=== PATIENT | male | born 1980 | race Two or more races ===

== ENCOUNTER 2020-02-17 19:08 | Inpatient (IN) | payer MEDICAID, OTHER ==
[~2020-02-17] VITALS: Ht 162.6 cm; Wt 108.0 kg
--- NOTE | 2020-02-17 19:08 | NUR ---
BIBRA 41 FOR R SIDED WEAKNESS X 1 WK; PT TO BED 9, PT AAOX4, SALVADOREAN SPEAKING, +RIGHT ARM WEAKNESS, +RIGHT LEG WEAKNESS. PER REPORT, PT HAD WEAKNESS X1WEEK, DID NOT SEEK MEDICAL CARE UNTIL TODAY, -SOB, PLACED ON MONITOR, +HIGH BP, DR. CHRISTINE AT BEDSIDE FOR EVAL
[2020-02-17] MEDS ORDERED: LABETALOL HCL IV 100MG VIAL ONE (19:25)
--- NOTE | 2020-02-17 19:27 | NUR ---
PAGED RADIOLOGY TO DO CT STAT
--- NOTE | 2020-02-17 19:28 | NUR ---
drawn blood from [facility], sent to lab
[2020-02-17] MEDS ORDERED: IV NS 0.9% 1,000 ML BAG IV ONE (19:30)
[2020-02-17] MEDS ORDERED: LABETALOL 20 MG/4 ML VIAL IV ONE (19:30)
[2020-02-17 19:39] LABS: HEMOGLOBIN 15.6 g/dL (13.5-17.5); LYMPHOCYTES # (AUTO) 1.5 /CMM (0.8-4.8); MEAN CORPUSCULAR HGB CONC 33 g/dl (31.0-36.0); MONOCYTES # (AUTO) 0.6 /CMM (0.1-1.30); NEUTROPHILS # (AUTO) 5.4 /CMM (1.8-8.9); RED BLOOD CELL COUNT(AUTO) 5.83 MIL/uL (4.5-6.0)
[2020-02-17 19:42] LABS: BASOPHILS % (AUTO) 0.5 % (0.0-2.0); EOSINOPHILS % (AUTO) 1.9 % (0.0-6.0); HEMATOCRIT 48 % (39-51); LYMPHOCYTES % (AUTO) 19.6 % (20.0-44.0); MEAN CORPUSCULAR VOLUME 82 fL (80-96); MONOCYTES % (AUTO) 7.4 % (2.0-12.0); NEUTROPHILS % (AUTO) 70.6 % (43.0-81.0); WHITE BLOOD COUNT (AUTO) 7.7 K/uL (4.3-11.0)
[2020-02-17 19:46] LABS: CALCIUM, SERUM 9.3 mg/dL (8.5-10.1); CREATININE 1.5 mg/dL (0.6-1.3); PLATELET COUNT (AUTO) 20 /CMM (150-450); POTASSIUM 3.7 mmol/L (3.5-5.1)
[2020-02-17 19:52] LABS: ALBUMIN 4.1 g/dL (3.4-5.0); BILIRUBIN,DIRECT 0.1 mg/dL (0.0-0.2); BILIRUBIN,TOTAL 0.5 mg/dL (0.2-1.0); TOTAL PROTEIN, SERUM 8.8 g/dL (6.4-8.2)
--- NOTE | 2020-02-17 20:16 | NUR ---
NEURO PAGED, DR. ACUNA VERTICAL PUNCH OPERATOR
--- NOTE | 2020-02-17 20:36 | NUR ---
DR. CHRISTINE ON THE PHONE WITH NEURO, DR. ACUNA
[2020-02-17 20:59] LABS: LYMPHOCYTES % (MANUAL) 19 % (16-48); MONOCYTES % (MANUAL) 6 % (0-11.0); NEUTROPHILS % (MANUAL) 75 (42-76)
--- NOTE | 2020-02-17 21:06 | NUR ---
REPORT GIVEN TO CHARGE NURSE QUINCY ANGUIANO --PT WILL BE TRANSPORTED TO 3RD FLOOR
[2020-02-17 21:50] VITALS: BP 164/92
[2020-02-17] MEDS ORDERED: ONDANSETRON HCL/PF 4 MG/2 ML VIAL IVP PRN (22:00)
[2020-02-17] MEDS ORDERED: ACETAMINOPHEN 325 MG TABLET PO PRN (22:00)
[2020-02-17] MEDS ORDERED: Z GUARD REMEDY 2 OZ OINT TP PRN (22:00)
--- NOTE | 2020-02-17 22:00 | NUR ---
PT TRANSPORTED TO 3RD FLOOR
[2020-02-17] MEDS: hydrALAZINE HCL 25 MG TABLET PO SCH (23:15)
[2020-02-17] MEDS: IV NS 0.9% 1,000 ML IV PRN (23:16)
[2020-02-18] VITALS (8 sets, daily range): BP systolic 134–174; BP diastolic 76–96
[2020-02-18] MEDS: hydrALAZINE HCL 25 MG TABLET PO SCH ×3 (05:07→21:37)
--- NOTE | 2020-02-18 05:31 | NUR ---
ENDING NOTES: AROUSES EASILY AND ALERT. SPEECH CLEAR SOME LATVIAN SOME CUBAN. HE IS QUICK TO SMILE. FRIENDLY AND COOPERATIVE. NOTED LEFT SIDE MOIUTH DROOP. SWALLOW EVAL BEDSIDE DONE WITH 30 ML AND THE 60 ML EVA HE PASSED NO COUGHING. ASP PRECAUTIONS WILL BE OBSERVED. RIGHT ARM FLACCID, NO TOY PAINTER NO FINGER MOVEMENT AND UNABLE TO LIFT AND HOLD. MD VÁSQUEZ AT THE NURSE'S STATION AND I SPOKE TO HIM ABOUT THE RIGHT ANR AND LEFT LEG CONDITION AND THE DROOPING LEFT SIDE OF THE MOUTH,'HE SAID HE IS AWARE SAW HIM DOWN IN THE ER. B/P WAS IN THE 200'S IN THE ER LATEST 151/76 HR67. SLEPT THRU THE NIGHT USING T HE URINAL X2.
[2020-02-18 07:12] LABS: BASOPHILS % (AUTO) 0.6 % (0.0-2.0); EOSINOPHILS % (AUTO) 1.4 % (0.0-6.0); HEMATOCRIT 45 % (39-51); HEMOGLOBIN 14.5 g/dL (13.5-17.5); LYMPHOCYTES # (AUTO) 1.4 /CMM (0.8-4.8); MEAN CORPUSCULAR HGB CONC 33 g/dl (31.0-36.0); MEAN CORPUSCULAR VOLUME 82 fL (80-96); MONOCYTES # (AUTO) 0.5 /CMM (0.1-1.30); MONOCYTES % (AUTO) 8.2 % (2.0-12.0); NEUTROPHILS # (AUTO) 4.5 /CMM (1.8-8.9); NEUTROPHILS % (AUTO) 68.8 % (43.0-81.0); RED BLOOD CELL COUNT(AUTO) 5.42 MIL/uL (4.5-6.0); WHITE BLOOD COUNT (AUTO) 6.6 K/uL (4.3-11.0)
[2020-02-18 07:49] LABS: ALBUMIN 3.6 g/dL (3.4-5.0); BILIRUBIN,TOTAL 0.5 mg/dL (0.2-1.0); CALCIUM, SERUM 8.6 mg/dL (8.5-10.1); CREATININE 1.5 mg/dL (0.6-1.3); MAGNESIUM 2.4 mg/dL (1.8-2.4); PHOSPHORUS 5.2 mg/dL (2.5-4.9); POTASSIUM 3.5 mmol/L (3.5-5.1); TOTAL PROTEIN, SERUM 7.7 g/dL (6.4-8.2)
--- NOTE | 2020-02-18 07:50 | NUR ---
rn opening notes Patient received on room air, nos ob noted, patient denies pain at this time. L AC 20 gauge present with NS 80 ml per hour running. Awaiting for Dr. Chan's evaluation. Bed at the lowest setting, call light within reach, side rails up x2.
[2020-02-18 07:55] LABS: THYROID STIMULATING HORMONE 0.973 uIU/mL (0.358-3.74)
[2020-02-18 08:03] LABS: PLATELET COUNT (AUTO) 24 /CMM (150-450)
[2020-02-18 08:04] LABS: EOSINOPHILS % (MANUAL) 2 % (0-4); LYMPHOCYTES % (MANUAL) 21 % (16-48); MONOCYTES % (MANUAL) 4 % (0-11.0); NEUTROPHILS % (MANUAL) 73 (42-76)
[2020-02-18] MEDS: LOSARTAN POTASSIUM 50 MG TABLET PO SCH (08:32)
[2020-02-18] MEDS: AMLODIPINE BESYLATE 10 MG TABLET PO SCH (08:32)
--- NOTE | 2020-02-18 11:11 | NUR ---
rn notes Dr Rojas made aware about the policy for stroke, about needing anti coagulant. Patient is currently just waiting for Dr. Chan at this time
--- NOTE | 2020-02-18 11:47 | NUR ---
SOCIAL WORK CONSULT: SW received consult for evaluation per stroke protocol. SW met with pt at bedside, introduced self and reason for visit. Upon social work evaluation, pt appeared with positive attitude was cooperative and pleasant. Pt is Mongolian Speaking only. Pts left cheek is droopy but pt is able to speak adequately. Pt also states that his right arm and right leg are impaired. Pt states that he lives with his relative and brother Klaus [phone] at [address], [place], [address]. Pt identifies his brother as his medical decision maker. Pt identifies his brother, relative Jose R [phone] and his cousin as his main support systems and states that his brother has helped him with his 1 year sobriety from alcohol. He also states that his brother will help him recover and assist him at home and states that he will return home and to work once stable for discharge. SW educated pt on the signs and symptoms of a stroke and explained that a stroke is a sudden event that may lead to a decline in functioning. Pt understood and states that in the 17 years he has lived in the [facility] he has never sought medical attention or visited a health care provider for routine check-ups. Pt states that he is unsure if he has other comorbidities and states that he has not been informed by MD about this current condition. SW completed the PhQ9 and pt scored a 4. SW provided pt with educational material on post-stroke depression. Pt denied symptoms of depression and also strongly denied suicidal ideation. Addendum: 02/18/20 at 1218 by BERENICE STAUFFER Pt is alert and oriented x4, to self, place, time, and situation.
--- NOTE | 2020-02-18 18:28 | NUR ---
rn closing notes Patient remains on room air, no sob noted, patient denies pain at this time. Right side of patients body unable to move at this time. Patient relies on his left arm. L AC 20 gauge present. Platelet low and MD aware. Awaiting for Dr. Chan consult and Neuro consult at this time. Bed at the lowest setting, call light within reach, side rails up x2.
--- NOTE | 2020-02-18 19:45 | NUR ---
MARKET RESEARCH MANAGER NOTES RECEIVED PATIENT AWAKE ALERT ORIENTED X4, CUBAN SPEAKING, DENIES ANY PAIN OR DISCOMFORT AT THIS TIME, TELE MONITOR READS SR 80s WITH INVERTED T WAVE. SAFETY MEASURES IN PLACE, BED IN LOW LOCKED POSITION, ASPIRATION PRECAUTION EMPHASIZED, CALL LIGHT WITH IN EASY REACH. IV ACCESS INTACT AND PATENT, NO SIGNS OF INFILTRATION AT THIS TIME. KEEP CLEAN WARM DRY AND COMFORTABLE. WILL CONTINUE TO MONITOR ACCORDINGLY.
--- NOTE | 2020-02-18 20:30 | NUR ---
RN NOTES ABLE TO SWALLOW LIQUIDS. ASPIRATION PRECAUTION EMPHASIZED, NO SIGNS OF DISTRESS NOTED.
[2020-02-19] VITALS: BP 145/73
[2020-02-19 00:29] VITALS: BP 145/73
[2020-02-19 04:00] VITALS: BP 136/77
[2020-02-19] MEDS: hydrALAZINE HCL 25 MG TABLET PO SCH ×3 (05:19→21:40)
--- NOTE | 2020-02-19 06:41 | NUR ---
RN NOTES ALL NEEDS ATTENDED AND MET, ABLE TO REST AND SLEPT AT INTERVALS. ASPIRATION PRECAUTION EMPHASIZED. SAFETY PRECAUTIONS IN PLACED. CALL LIGHT WITH IN EASY REACH. TELE MONITOR READS SR 80'S WITH INVERTED T WAVE. DENIES ANY PAIN AT THIS TIME. RIGHT SIDE OF PATIENTS' BODY UNABLE TO MOVE AT THIS TIME. IV ACCESS INTACT AND PATENT. PLATELET MD JESSICA AWARE SINCE YESTERDAY AM SHIFT. AWAITING FOR DR. CHAVARRIA CONSULT AND NEURO CONSULT. WILL ENDORSE TO AM NURSE FOR CONTINUITY OF CARE.
[2020-02-19] MEDS: IV NS 0.9% 1,000 ML IV PRN (07:02)
[2020-02-19 07:27] LABS: ALBUMIN 3.5 g/dL (3.4-5.0); BASOPHILS % (AUTO) 0.6 % (0.0-2.0); BILIRUBIN,TOTAL 0.4 mg/dL (0.2-1.0); CALCIUM, SERUM 8.8 mg/dL (8.5-10.1); CREATININE 1.6 mg/dL (0.6-1.3); EOSINOPHILS % (AUTO) 1.9 % (0.0-6.0); HEMATOCRIT 44 % (39-51); HEMOGLOBIN 14.2 g/dL (13.5-17.5); LYMPHOCYTES % (AUTO) 15.9 % (20.0-44.0); MAGNESIUM 2.5 mg/dL (1.8-2.4); MEAN CORPUSCULAR HGB CONC 33 g/dl (31.0-36.0); MEAN CORPUSCULAR VOLUME 82 fL (80-96); MONOCYTES # (AUTO) 0.5 /CMM (0.1-1.30); MONOCYTES % (AUTO) 7.2 % (2.0-12.0); NEUTROPHILS # (AUTO) 4.7 /CMM (1.8-8.9); NEUTROPHILS % (AUTO) 74.4 % (43.0-81.0); PHOSPHORUS 4.6 mg/dL (2.5-4.9); POTASSIUM 3.7 mmol/L (3.5-5.1); RED BLOOD CELL COUNT(AUTO) 5.32 MIL/uL (4.5-6.0); TOTAL PROTEIN, SERUM 7.4 g/dL (6.4-8.2); WHITE BLOOD COUNT (AUTO) 6.4 K/uL (4.3-11.0)
[2020-02-19 08:00] VITALS: BP 138/66
--- NOTE | 2020-02-19 08:30 | NUR ---
RN OPENING NOTE Patient is resting in bed, A/O x4, showing no signs of acute distress or SOB, stable on RA. Stroke assessment completed, patient presents with severe weakness in the MEÑO and moderate weakness in the RLE. Nursing swallow eval completed, patient able to swallow water and medications. IV line is clean and intact. Bed is in lowest position, side rails x2 in upright position, call light is within reach and patient is aware of how to call for assistance when needed. Will continue with plan of care.
[2020-02-19] MEDS: AMLODIPINE BESYLATE 10 MG TABLET PO SCH (08:33)
[2020-02-19] MEDS: LOSARTAN POTASSIUM 50 MG TABLET PO SCH (08:33)
[2020-02-19 09:31] LABS: PLATELET COUNT (AUTO) 18 /CMM (150-450)
--- NOTE | 2020-02-19 09:31 | NUR ---
RN NOTE Received call from Júnior from the lab. Platelet count today is 18. Will notify
--- NOTE | 2020-02-19 09:45 | NUR ---
RN NOTE MD aware of platelet count. No new orders at this time.
--- NOTE | 2020-02-19 10:00 | NUR ---
RN NOTE Received order from Sivakumar DUENAS to DC farias catheter. Farias Dc'd urinal at the bedside. Addendum: 02/19/20 at 1148 by JORDIN LAZARO RN documented on wrong patient* please disregard this note.
[2020-02-19 10:21] LABS: EOSINOPHILS % (MANUAL) 1 % (0-4); LYMPHOCYTES % (MANUAL) 16 % (16-48); MONOCYTES % (MANUAL) 9 % (0-11.0); NEUTROPHILS % (MANUAL) 74 (42-76)
--- NOTE | 2020-02-19 18:47 | NUR ---
RN CLOSING NOTE Patient is resting in bed, A/O x4, showing no signs of acute distress or SOB, stable on RA. Stroke assessment completed, patient presents with severe weakness in the MEÑO and moderate weakness in the RLE. Nursing swallow eval completed, patient able to swallow water and medications. IV line is clean and intact. All patient needs met, all due medications given, patient kept clean and dry throughout shift. Bed is in lowest position, side rails x2 in upright position, call light is within reach and patient is aware of how to call for assistance when needed. Will endorse to PM shift. .
--- NOTE | 2020-02-19 19:15 | NUR ---
RN OPENING PM NOTE CHERRIE RECIEVED FROM JORDIN MATHEW. PATIENT SEEN IN BED A/O X4. IN NO SIGN OF ACUTE DISTRESS. RESP EVEN AND UNLABORED SKIN IS PINK. PT FOUND TO HAVE SERE WEAKNESS IN THE MEÑO AND MODERATE WEAKNESS TO RLE. PATIENT ASSISTED AND AMBULATED TO BR WITH NURSE ASSIST WITH UNSTEADY GAIT. IV TO LAC FLUSHING WITH NO S/S OF INFILTRATION. PT DENIES PAIN. BED DOWN LOCKED SRX2 PATIENT ASSISTED BACK TO BED AND VERBALIZED UNDERSTANDING TO CALL FOR ASSISTANCE IF NEEDED. BED ALARM ACTIVTED.
[2020-02-19 20:00] VITALS: BP 130/76
[2020-02-20] MEDS: hydrALAZINE HCL 25 MG TABLET PO SCH ×3 (04:40→21:40)
[2020-02-20] MEDS: IV NS 0.9% 1,000 ML IV PRN ×2 (04:45→18:47)
--- NOTE | 2020-02-20 06:36 | NUR ---
RN CLOSING PM NOTE PATIENT SEEN IN BED A/O X4. IN NO SIGN OF ACUTE DISTRESS. RESP EVEN AND UNLABORED SKIN IS PINK. PT STILL HAS SEVERE WEAKNESS IN THE MEÑO AND MODERATE WEAKNESS TO RLE. PATIENT ASSISTED AND AMBULATED TO BR WITH NURSE ASSIST WITH UNSTEADY GAIT. IV TO LAC FLUSHING WITH NO S/S OF INFILTRATION IVF INFUSING NS AT 80ML/HR. PT DENIES PAIN. BED DOWN LOCKED SRX2 PATIENT ASSISTED BACK TO BED AND VERBALIZED UNDERSTANDING TO CALL FOR ASSISTANCE IF NEEDED. BED ALARM ACTIVTED.
[2020-02-20 06:53] LABS: BASOPHILS % (AUTO) 0.6 % (0.0-2.0); EOSINOPHILS % (AUTO) 1.7 % (0.0-6.0); HEMATOCRIT 43 % (39-51); HEMOGLOBIN 13.7 g/dL (13.5-17.5); LYMPHOCYTES % (AUTO) 15.2 % (20.0-44.0); MEAN CORPUSCULAR HGB CONC 32 g/dl (31.0-36.0); MEAN CORPUSCULAR VOLUME 83 fL (80-96); MONOCYTES # (AUTO) 0.6 /CMM (0.1-1.30); MONOCYTES % (AUTO) 8.5 % (2.0-12.0); NEUTROPHILS # (AUTO) 4.9 /CMM (1.8-8.9); RED BLOOD CELL COUNT(AUTO) 5.18 MIL/uL (4.5-6.0); WHITE BLOOD COUNT (AUTO) 6.7 K/uL (4.3-11.0)
[2020-02-20 07:03] LABS: PLATELET COUNT (AUTO) 12 /CMM (150-450)
[2020-02-20 07:07] LABS: PTH, INTACT 24 pg/mL (15-65)
[2020-02-20 07:28] LABS: THYROID STIMULATING HORMONE 1.067 uIU/mL (0.358-3.74)
--- NOTE | 2020-02-20 07:30 | NUR ---
MS/RN - Assessment Patient is A/O x4, no complaints overnight, afebrile, denies pain, no apparent distress, stable on room air. Patient noted with left facial drooping, RUE flaccid, RLE weakness. IVF NS at 80 ml/hr infusing well on the LAC with no signs of infiltration. Labs reviewed, critical platelet result [address] Rojas with no new order. Fall and aspiration precautions maintained. Pending neuro consult with Dr. Voss. Will continue with current medical management.
[2020-02-20 07:34] LABS: CALCIUM, SERUM 8.5 mg/dL (8.5-10.1); CREATININE 1.6 mg/dL (0.6-1.3); POTASSIUM 3.6 mmol/L (3.5-5.1)
[2020-02-20 08:00] VITALS: BP 145/94
[2020-02-20 08:23] LABS: BAND % (MANUAL) 3 % (0.0-5.0); EOSINOPHILS % (MANUAL) 2 % (0-4); LYMPHOCYTES % (MANUAL) 16 % (16-48); MONOCYTES % (MANUAL) 9 % (0-11.0); NEUTROPHILS % (MANUAL) 70 (42-76)
[2020-02-20] MEDS: LOSARTAN POTASSIUM 50 MG TABLET PO SCH (08:24)
[2020-02-20] MEDS: AMLODIPINE BESYLATE 10 MG TABLET PO SCH (08:24)
[2020-02-20 09:06] LABS: *SPE A/G RATIO 0.9 (0.7-1.7); *SPE ALBUMIN 3.3 g/dL (2.9-4.4); *SPE ALPHA-1-GLOBULIN 0.2 g/dL (0.0-0.4); *SPE ALPHA-2-GLOBULIN 0.8 g/dL (0.4-1.0); *SPE BETA GLOBULIN 1.2 g/dL (0.7-1.3); *SPE GLOBULIN, TOTAL 3.6 g/dL (2.2-3.9); *SPE M-SPIKE Not Observed g/dL (Not Observed); *SPEGAMMA GLOBULIN 1.5 g/dL (0.4-1.8)
--- NOTE | 2020-02-20 10:00 | NUR ---
MS/RN - Neuro consult Seen and examined by Dr. Johnson with no new order at this time.
[2020-02-20 13:06] LABS: *DILUTE PROTHROMBIN TIME (dPT) 44.9 sec (0.0-55.0); *THROMBIN TIME 18.6 sec (0.0-23.0); *dPT CONFIRM RATIO 1.06 Ratio (0.00-1.40); *dRVVT 52.3 sec (0.0-47.0); FACTOR VIII ACTIVITY 81 % (56-140); PROTEIN C ACTIVITY 128 % (73-180)
[2020-02-20 16:00] VITALS: BP 151/74
--- NOTE | 2020-02-20 18:24 | NUR ---
MS/RN - End of shift summary Patient resting comfortably, A/O x 4, no s/s of distress, stable on room air. No significant change in condition seen. Dr. Chan with order for CT abd/pelvis and chest without contrast to r/o malignancy still pending. All needs attended. Will continue with current medical management.
[2020-02-20 18:41] LABS: C-REACTIVE PROTEIN 0.3 mg/dL (0.0-0.9)
--- NOTE | 2020-02-20 19:05 | NUR ---
MS RN OPENING NOTES: RECEIVED PATIENT IN BED,AWAKE A/O X4. NO COMPLAIN OF PAIN.NO SOB NOTED. HOB ELEVATED AT ALL TIMES. CALL LIGHT WITHIN REACH.BED ALARM ON.BED IN LOWEST AND LOCKED POSITION.WITH FACIAL DROOPING.
--- NOTE | 2020-02-20 19:45 | NUR ---
PATIENT AMBULATED TO THE BATHROOM, STEADY, WITH FASHION CONSULTANT SALES STAND-BY ASSIST ONLY. HAD BM.
[2020-02-20 20:00] VITALS: BP 145/80
[2020-02-20 20:51] VITALS: BP 145/80
[2020-02-21 04:27] VITALS: BP 160/81
[2020-02-21] MEDS: hydrALAZINE HCL 25 MG TABLET PO SCH ×2 (04:32→12:36)
[2020-02-21 06:54] LABS: BASOPHILS % (AUTO) 0.5 % (0.0-2.0); EOSINOPHILS % (AUTO) 1.7 % (0.0-6.0); HEMATOCRIT 42 % (39-51); HEMOGLOBIN 13.6 g/dL (13.5-17.5); LYMPHOCYTES # (AUTO) 1.4 /CMM (0.8-4.8); LYMPHOCYTES % (AUTO) 16.5 % (20.0-44.0); MEAN CORPUSCULAR HGB CONC 32 g/dl (31.0-36.0); MEAN CORPUSCULAR VOLUME 83 fL (80-96); MONOCYTES # (AUTO) 0.6 /CMM (0.1-1.30); NEUTROPHILS # (AUTO) 6.1 /CMM (1.8-8.9); NEUTROPHILS % (AUTO) 74.3 % (43.0-81.0); RED BLOOD CELL COUNT(AUTO) 5.06 MIL/uL (4.5-6.0); WHITE BLOOD COUNT (AUTO) 8.2 K/uL (4.3-11.0)
--- NOTE | 2020-02-21 07:00 | NUR ---
MS RN CLOSING NOTES: PATIENT WENT DOWN TO CT BY WHEELCHAIR FOR CT SCAN OF CHEST, ABD. AND PELVIS AND CAME BACK. PATIENT RESTED THROUGHOUT THE NIGHT.NO COMPLAIN OF PAIN.NO SOB NOTED. CALL LIGHT WITHIN REACH. BED IN LOWEST AND LOCKED POSITION.
[2020-02-21 07:07] LABS: IMMUNOGLOBULIN A, SERUM 206 mg/dL (90-386); IMMUNOGLOBULIN G, SERUM 1332 mg/dL (603-1613); IMMUNOGLOBULIN M, SERUM 149 mg/dL (20-172)
[2020-02-21 07:07] LABS: PLATELET COUNT (AUTO) 11 /CMM (150-450)
[2020-02-21 07:17] LABS: CALCIUM, SERUM 8.6 mg/dL (8.5-10.1); CREATININE 1.3 mg/dL (0.6-1.3); POTASSIUM 3.9 mmol/L (3.5-5.1)
--- NOTE | 2020-02-21 07:20 | NUR ---
PLATELET =11,000 DR. BRIGHT AWARE, NO ORDER MADE, ENDORSED TO THE NEXT SHIFT RN.
--- NOTE | 2020-02-21 07:45 | NUR ---
MS/RN - Assessment Patient is A/O x 4, no complaints overnight, afebrile, denies pain, no apparent distress, stable on room air. Patient stated he feels better, RUE remain flaccid but RLE weakness improved. IVF NS at 80 ml/hr infusing well on the LAC with no signs of infiltration. Labs reviewed, critical platelet result [address] Rojas with no new order. CT abd/pelvis/chest without contrast was done, results pending. Fall and aspiration precautions maintained. Will continue with current medical management.
[2020-02-21 08:00] VITALS: BP 142/65
[2020-02-21] MEDS: AMLODIPINE BESYLATE 10 MG TABLET PO SCH (08:13)
[2020-02-21] MEDS: LOSARTAN POTASSIUM 50 MG TABLET PO SCH (08:13)
[2020-02-21 08:38] LABS: LYMPHOCYTES % (MANUAL) 19 % (16-48); MONOCYTES % (MANUAL) 3 % (0-11.0); NEUTROPHILS % (MANUAL) 78 (42-76)
[2020-02-21 09:36] LABS: *ANA ANTI-CENTROMERE B AB <0.2 AI (0.0-0.9); *ANA ANTI-DNA(DS) AB, QN 1 IU/mL (0-9); *ANA ANTI-JO-1 <0.2 AI (0.0-0.9); *ANA ANTICHROMATIN ANTIBODY <0.2 AI (0.0-0.9); *ANA RNP ANTIBODIES <0.2 AI (0.0-0.9); *ANA SJOGREN'S ANTI-SS-A <0.2 AI (0.0-0.9); *ANA SJOGREN'S ANTI-SS-B <0.2 AI (0.0-0.9); *ANAANTI-SCLERODERMA-70 AB <0.2 AI (0.0-0.9); *ANASMITH AB <0.2 AI (0.0-0.9)
[2020-02-21] MEDS ORDERED: HYDR-4076 PO (11:23)
[2020-02-21] MEDS ORDERED: AMLO10TA7 PO (11:23)
[2020-02-21] MEDS ORDERED: ATOR80TA PO (11:23)
[2020-02-21] MEDS ORDERED: LOSA50TA3 PO (11:23)
[2020-02-21] MEDS ORDERED: ATOR40TA PO (11:34)
[2020-02-21 12:36] VITALS: BP 139/72
--- NOTE | 2020-02-21 15:30 | NUR ---
MS/RN - Discharge Patient alert and oriented throughout the shift, discharged to [facility] in stable condition, remain afebrile, no s/s of bleeding, denies any pain, no c/o dizziness, not in any form of distress, ambulates with assist/walker. Reviewed discharge instructions with QUINCY Mcdermott at [facility] ([phone]) and she verbalized full understanding of all teachings including medications and follow-up care with cardio, nephro, and marilyn/onc. All belongings with patient and he deny any missing items. Patient refused photos to be taken of skin, no breakdown noted. Saline lock removed on the left AC with catheter tip intact, no redness, no swelling noted at the site. Discharge paperwork signed and copies were given per protocol. Endorsed to ambulance crew accordingly.
[2020-02-22 09:07] LABS: *ANTITHROMBIN III AG 92 % (72-124)
[2020-02-22 15:11] LABS: *CARD ANTI-CARDIOLIPIN AB IgG <9 GPL U/mL (0-14); *CARD ANTI-CARDIOLIPIN AB IgM <9 MPL U/mL (0-12)
[2020-02-25 13:11] LABS: *FACTOR II, DNA ANALYSIS Negative (.)
== END 2020-02-21 15:25 | DRG 45 ==
LOC: ER 19:10 → TELE 20:50 → MED 02-19 13:01
PROVIDERS: ADMIT Nurse Practitioner Acute Care; ATTEND Family Medicine
DX: I63.9 Cerebral infarction, unspecified (principal); N17.0 Acute kidney failure with tubular necrosis; I21.A1 Myocardial infarction type 2; G81.91 Hemiplegia, unspecified affecting right dominant side; D69.6 Thrombocytopenia, unspecified; Q21.0 Ventricular septal defect; R29.708 NIHSS score 8; N18.9 Chronic kidney disease, unspecified; I12.9 Hypertensive chronic kidney disease with stage 1 through stage 4 chronic kidney disease, or unspecified chronic kidney disease
CPT/HCPCS: 36415; 70450-TC; 71045-TC; 71250-TC; 76770-TC; 80048-TC; 80053-TC; 80061-TC; 80076-TC; 81240; 81241; 82232; 82550-TC; 82784; 83090; 83540-TC; 83615-TC; 83735-TC; 83970; 84100-TC; 84155; 84165; 84443-TC; 84484-TC; 85025-TC; 85240; 85300; 85301; 85303; 85613; 85670; 85705; 85730-TC; 85732; 86140-TC; 86147; 86225; 86235; 86334; 86431-TC; 87081-TC; 92611-TC; 93307-TC; 93970-TC; 97110-TC; 97112-TC; 97116-TC; 97530-TC; 97535-TC; G0378; J3490; J7030